=== PATIENT | female | born 1945 | race Caucasian/White ===

== ENCOUNTER 2016-04-11 08:20 | Emergency (ER) | payer MEDICARE, OTHER ==
--- NOTE | 2016-04-11 08:59 | RAD ---
Exam: Two-view chest COMPARISON: 03/07/2016, 05/01/2015, 04/07/2009 INDICATION: Cough for 6 weeks. FINDINGS: PA and lateral views of the chest were obtained. Cardiac silhouette is within normal limits and stable. Prominent epicardial fat pad is again noted on the right. There is no focal airspace disease or pleural effusion. Bones of the chest wall within normal limits. Surgical clips are noted in the right upper quadrant. IMPRESSION: No acute pulmonary process.
== END 2016-04-11 09:32 | disposition home or self-care (01) ==
LOC: ED 08:20
DX: J40 Bronchitis, not specified as acute or chronic (principal); Z86.718 Personal history of other venous thrombosis and embolism

== ENCOUNTER 2016-06-11 08:31 | Day surgery (SDC) | payer MEDICARE, OTHER ==
[~2016-06-11 08:31] MED LIST: FENTANYL 250 MCG/5 ML AMP IV PRN; LACTATED RINGERS 1,000 ML IV SCH; MIDAZOLAM HCL 5 MG/5 ML VIAL IV PRN
[2016-06-11] MEDS ORDERED: IV START KIT ONE (08:37)
[2016-06-11] MEDS ORDERED: LACTATED RINGERS 1,000 ML ONE (08:37)
[2016-06-11] MEDS ORDERED: MIDAZOLAM HCL 5 MG/5 ML VIAL ONE (09:09)
[2016-06-11] MEDS ORDERED: FENTANYL 250 MCG/5 ML AMP ONE (09:10)
--- NOTE | 2016-06-13 12:55 | SURGPATH ---
[facility] [address] [place] [id number] Patient Name: JAMIE RMN MR#: [id number] : 1945 Gender: F Specimen #: [id number] Collected: 06/11/2016 Received: 06/12/2016 Reported: 06/13/2016 Submitting Phys: MARY ARELLANO Copy To Phys: [facility] LILLIE RENTERIA Clinical History / Pre-Operative Diagnosis: HISTORY OF COLON POLYPS; SURVEILLANCE COLONOSCOPY Specimen Source / Surgical Procedure Performed: SIGMOID POLYP AT 15 CM Interpretation: SIGMOID POLYP AT 15 CM: - HYPERPLASTIC POLYP. Electronically Signed Out Mary Al M.D. Gross Description: The specimen is received in a formalin filled container labeled with the patient's name and "sigmoid at 15 cm". A polypoid romeo biopsy is 0.4 x 0.3 x 0.2 cm. Totally embedded in one cassette. Gee Nieto, PWilfredoAWilfredo Microscopic Description: Sections of the sigmoid colon polyp show superficial tufting of the columnar epithelium and crypt serration. There is no evidence of dysplasia. 1: [id number] K63.5
== END 2016-06-11 10:17 | disposition home or self-care (01) ==
LOC: SDC 08:31
PROVIDERS: ATTEND Internal Medicine Gastroenterology
PROC: 0DBN8ZX Excision of Sigmoid Colon, Via Natural or Artificial Opening Endoscopic, Diagnostic (ICD-10-PCS; principal; 2016-06-11)
DX: Z12.11 Encounter for screening for malignant neoplasm of colon (principal); D12.5 Benign neoplasm of sigmoid colon; K57.30 Diverticulosis of large intestine without perforation or abscess without bleeding; Z86.010 Personal history of colon polyps; F32.9 Major depressive disorder, single episode, unspecified; E03.9 Hypothyroidism, unspecified; F41.9 Anxiety disorder, unspecified; Z88.1 Allergy status to other antibiotic agents
CPT/HCPCS: 45385; J3010; J2250; J7120